=== PATIENT | female | born 1995 | race Caucasian/White ===

== ENCOUNTER 2017-01-02 12:20 | Emergency (ER) | payer BC ==
[2017-01-02 12:30] VITALS: BP 122/68; PULSE 82; TEMP 99; BMI 29.7
[2017-01-02 12:40] LABS: URINE APPEARANCE Clear; URINE BILIRUBIN Negative (NEGATIVE); URINE GLUCOSE (UA) Negative (NEGATIVE); URINE KETONE Negative (NEGATIVE); URINE LEUK ESTERASE Negative (NEGATIVE); URINE NITRITE Negative (NEGATIVE); URINE PROTEIN Negative (NEGATIVE)
[2017-01-02 12:41] LABS: URINE BLOOD Trace-intact (NEGATIVE); URINE COLOR YELLOW
--- NOTE | 2017-01-02 13:34 | PDOC ---
History of Present Illness - General Chief Complaint: Pain Stated Complaint: ABD PAIN, DIARRHEA Time Seen by Provider: 01/02/17 12:29 History Source: Patient, Old Records Exam Limitations: No Limitations - History of Present Illness Initial Comments: 01/02/17 13:29 21-year-old female with no significant past medical history presents to the emergency Department with complaints of 4 day history of diarrhea and abdominal cramping. The abdominal cramping is diffuse and occurs right before episodes of diarrhea. The diarrhea is described as watery and as many as 6 episodes in one day. The patient says he's had decreased by mouth intake and has had 3 episodes of diarrhea over the past 2 days. She denies fevers or chills. The patient has recently traveled from the [place] with 6 individual also also have similar symptoms. She denies food out of the ordinary, antibiotic use. Past History - Past Medical History Allergies/Adverse Reactions: Allergies Allergy/AdvReac Type Severity Reaction Status Date / Time No Known Allergies Allergy Verified 01/02/17 12:25 Home Medications: Ambulatory Orders NK [No Known Home Medication] 01/02/17 Other medical history: DENIES - Immunization History Immunization Up to Date: Yes - Psycho/Social/Smoking Cessation Hx Anxiety: No Suicidal Ideation: No Smoking Status: No Smoking History: Never smoked Have you smoked in the past 12 months: No Number of Cigarettes Smoked Daily: 0 Information on smoking cessation initiated: No Hx Alcohol Use: (weekends) Substance Use Type: None Review of Systems - Review of Systems Able to Perform ROS?: Yes Is the patient limited Telugu proficient: No Constitutional: No: Symptoms Reported HEENTM: No: Symptoms Reported Respiratory: No: Symptoms reported Cardiac (ROS): No: Symptoms Reported ABD/GI: Yes: Symptoms Reported, See HPI : No: Symptoms Reported Musculoskeletal: No: Symptoms Reported Integumentary: No: Symptoms Reported Neurological: No: Symptoms reported *Physical Exam - Vital Signs Last Vital Signs Temp Pulse Resp BP Pulse Ox 99 F 82 18 122/68 98 01/02/17 12:20 01/02/17 12:20 01/02/17 12:20 01/02/17 12:20 01/02/17 12:20 - Physical Exam Comments: 01/02/17 13:30 GENERAL: Well developed, well nourished. Awake and alert. No acute distress. HEENT: Normocephalic, atraumatic. PERRLA, EOMI. No conjunctival pallor. Sclera are non- icteric. Moist mucous membranes. Oropharynx is clear. NECK: Supple. Full ROM. No JVD. No lymphadenopathy. CARDIOVASCULAR: Regular rate and rhythm. No murmurs, rubs, or gallops. Distal pulses are 2+ and symmetric. PULMONARY: No evidence of respiratory distress. Lungs clear to auscultation bilaterally. No wheezing, rales or rhonchi. ABDOMINAL: Soft and obese. Non-tender. Non-distended. No rebound or guarding. No organomegaly. Normoactive bowel sounds. MUSCULOSKELETAL Normal range of motion at all joints. No bony deformities or tenderness. No CVA tenderness. EXTREMITIES: No cyanosis. No clubbing. No edema. No calf tenderness. SKIN: Warm and dry. Normal capillary refill. No rashes. No jaundice. NEUROLOGICAL: Alert, awake, appropriate. Cranial nerves 2-12 intact. Grossly non-focal exam. PSYCHIATRIC: Cooperative. Good eye contact. Appropriate mood and affect. ED Treatment Course - ADDITIONAL ORDERS Additional order review: Laboratory Results 01/02/17 12:31 Urine Color Yellow Urine Appearance Clear Urine pH 7.0 Ur Specific [place] 1.015 Urine Protein Negative Urine Glucose (UA) Negative Urine Ketones Negative Urine Blood Trace-intact H Urine Nitrite Negative Urine Bilirubin Negative Urine Urobilinogen 1.0 Ur Leukocyte Esterase Negative Urine HCG, Qual Negative Medical Decision Making - Medical Decision Making 01/02/17 13:31 21-year-old female with abdominal cramping and diarrhea 4 days. Differential diagnosis includes but is not limited to: Gastroenteritis, colitis, regional enteritis, traveler's diarrhea. The patient is well appearing with normal vital signs and appears to be hydrated. Plan: 1. IV fluids for hydration 2. Urine analysis and urine 3. By mouth trial 4. If tolerate food we'll discharge home. Follow-up with primary care physician and return to the emergency department if symptoms persist, worsen, or new symptoms arise. *DC/Admit/Observation/Transfer Diagnosis at time of Disposition: Diarrhea, Diffuse abdominal pain - Discharge Dispostion Disposition: HOME Condition at time of disposition: Stable Admit: No - Patient Instructions Printed Discharge Instructions: DI for Diarrhea and Traveler's Diarrhea -- Adult Additional Instructions: Keep drinking fluids and maintain your hydration. He may eat any foods that you want; however, bland foods may be best to start out with and then advance her diet slowly. Follow-up with your primary care physician and return to the emergency department if your symptoms persist, worsen, or new symptoms arise.
[2017-01-02 13:38] LABS: URINE WBC 0-1 (3-5)
[2017-01-02] MEDS ORDERED: SODIUM CHLORIDE 1,000 ML IV ONE (14:48)
== END 2017-01-02 14:30 | disposition home or self-care (01) ==
LOC: FER 12:20
PROC: 3E0337Z Introduction of Electrolytic and Water Balance Substance into Peripheral Vein, Percutaneous Approach (ICD-10-PCS; principal; 2017-01-02)
DX: R19.7 Diarrhea, unspecified (principal); R10.9 Unspecified abdominal pain
CPT/HCPCS: 81003; 81015; 84703; 99284-25

== ENCOUNTER 2017-09-14 05:54 | Emergency (ER) | payer BC ==
--- NOTE | 2017-09-14 05:59 | PDOC ---
History of Present Illness - General Chief Complaint: Injury Stated Complaint: FELL DOWN STAIRS, PAIN TO RIGHT LOWER LEG Time Seen by Provider: 09/14/17 05:59 - History of Present Illness Initial Comments: 09/14/17 06:22 This otherwise healthy 22-year-old woman presents with history of falling down 2 -3 stairs inside her home, turning her right ankle and landing on her lower leg/ foot just prior to presentation. Patient had been drinking alcohol (beer) prior to the fall but denies lightheadedness prior to the fall . No loss of consciousness; no neck injury. Patient has had pain in her right lower leg/ ankle/foot, especially with weightbearing since the injury. No previous history of right lower extremity injury. Patient denies chest pain/shortness of breath/abdominal pain. No pain or swelling of upper extremities or left lower extremity. LMP is currently (started 09/09) Medications: Patient denies ALLERGIES: None known Never smoked; alcohol socially only; denies other recreational drug use Past History - Past Medical History Allergies/Adverse Reactions: Allergies Allergy/AdvReac Type Severity Reaction Status Date / Time No Known Allergies Allergy Verified 09/14/17 05:55 Home Medications: Ambulatory Orders NK [No Known Home Medication] 01/02/17 - Immunization History Immunization Up to Date: Yes - Suicide/Smoking/Psychosocial Hx Smoking Status: No Smoking History: Never smoked Have you smoked in the past 12 months: No Number of Cigarettes Smoked Daily: 0 Hx Alcohol Use: Yes (WEEK ENDS) Substance Use Type: None Review of Systems - Review of Systems Able to Perform ROS?: Yes Comments:: 12 point review of systems is negative except for what is noted in the history of present illness *Physical Exam - Physical Exam Comments: GENERAL: Young adult female, speaking loudly but alert and oriented 3; pain with weightbearing on right leg but otherwise in no acute distress HEAD: Normal with no signs of trauma. NECK: Nontender, Normal range of motion, supple without lymphadenopathy, JVD, or masses. EXTREMITIES: Right lower extremity-edema/tenderness/nonbleeding abrasion[2 cm x 1 cm]/faint ecchymosis mid anterior tibial surface Mild edema/ tenderness just proximal to lateral malleolus of ankle; no ligamentous instability Mild tenderness without deformity/ecchymosis lateral midfoot; nonbleeding abrasion[2 cm x 2 cm] midfoot Motor/sensory functioning intact distally with distal extremity warm and dry Remainder of the extremity exam is normal NEUROLOGICAL: Cranial nerves II through XII grossly intact. Normal speech. No focal neurological deficits. SKIN: Warm, Dry, normal turgor, no rashes or noted. *DC/Admit/Observation/Transfer - Discharge Dispostion Condition at time of disposition: Stable - Referrals - Patient Instructions - Post Discharge Activity
[2017-09-14 06:00] VITALS: BP 155/114; TEMP 97.7; BMI 29.7
[2017-09-14] MEDS ORDERED: IBUPROFEN 600 MG TABLET (FP) PO ONE (06:15)
--- NOTE | 2017-09-14 08:13 | PDOC ---
*Physical Exam - Vital Signs Last Vital Signs Temp Pulse Resp BP Pulse Ox 97.7 F 113 H 20 155/114 100 09/14/17 05:56 09/14/17 05:56 09/14/17 05:56 09/14/17 05:56 09/14/17 05:56 - Physical Exam Comments: 09/14/17 08:06 "GENERAL: Awake, alert, and fully oriented, in no acute distress HEAD: No signs of trauma EYES: PERRLA, EOMI, sclera anicteric, conjunctiva clear ENT: Auricles normal inspection, hearing grossly normal, nares patent, oropharynx clear without exudates. Moist mucosa NECK: Nontender, no stepoffs, Normal ROM, supple, no lymphadenopathy, JVD, or masses LUNGS: Breath sounds equal, clear to auscultation bilaterally. No wheezes, and no crackles HEART: Regular rate and rhythm, normal S1 and S2, no murmurs, rubs or gallops ABDOMEN: Soft, nontender, normoactive bowel sounds. No guarding, no rebound. No masses EXTREMITIES: Normal range of motion, no edema. No clubbing or cyanosis. No cords, erythema, or tenderness NEUROLOGICAL: Cranial nerves II through XII intact. 5/5 strength and sensation in all extremities, Normal speech, normal gait, normal cerebellar function SKIN: Warm, Dry, normal turgor, no rashes or lesions noted. " ED Treatment Course - ADDITIONAL ORDERS Additional order review: Laboratory Results 09/14/17 06:30 Urine HCG, Qual Negative - Medications Given in the ED: ED Medications Discontinued Medications Generic Name Dose Route Start Last Admin Trade Name Clayq PRN Reason Stop Dose Admin Ibuprofen 600 mg 09/14/17 06:15 09/14/17 06:18 Motrin - PO 09/14/17 06:16 600 mg ONCE ONE Administration Medical Decision Making - Medical Decision Making 09/14/17 08:07 Sign out taken at 7 am. Pt is 22 yo F presenting to ED with R ankle and lozano pain after falling while intoxicated. - XRs negative for acute fx Pt reassessed - now is awake and alert, clinically sober. Pt ambulatory with steady gait, able to bear weight on ankle with minimal pain. CAL bandage applied. Pt is well appearing, with normal vitals. Clinically stable for DC at this time. I discussed the physical exam findings, ancillary test results and final diagnoses with the patient. I answered all of the patient's questions. The patient was satisfied with the care received and felt comfortable with the discharge plan and treatment plan. The patient agrees to follow up with the primary care physician within 24-72 hours. *DC/Admit/Observation/Transfer Diagnosis at time of Disposition: Ankle sprain - Discharge Dispostion Disposition: HOME Condition at time of disposition: Stable - Referrals Referrals: Juan José Rogel MD [Staff Physician] - - Patient Instructions Printed Discharge Instructions: DI for Ankle Sprain Additional Instructions: Keep your ankle elevated and apply ice to reduce swelling. Avoid bearing weight when possible. Follow up with an orthopedic surgeon within 1 week for further evaluation of your ankle pain. You may need an MRI to rule out ligamentous injury. If you experience worsening pain, swelling, or any other concerning symptoms, return to the ER immediately. - Post Discharge Activity - Attestations Physician Attestion: 09/14/17 08:13 I, Dr. Juan José Pettit MD, attest that this document has been prepared under my direction and personally reviewed by me in its entirety. I further attest, that it accurately reflects all work, treatment, procedures and medical decision -making performed by me.
[2017-09-14 08:25] VITALS: PULSE 99
== END 2017-09-14 08:26 | disposition home or self-care (01) ==
LOC: FER 05:54
DX: S93.401A Sprain of unspecified ligament of right ankle, initial encounter (principal); W18.39XA Other fall on same level, initial encounter; Y93.89 Activity, other specified; Y92.9 Unspecified place or not applicable
CPT/HCPCS: 73590-TC-RT-FY; 73610-TC-RT-FY; 73630-TC-RT-FY; 84703; 99281-25